=== PATIENT | female | born 1945 | race African-American/Black ===

== ENCOUNTER 2024-03-13 23:08 | Emergency (ER) | payer MEDICARE, MEDICAID ==
[~2024-03-13] VITALS: Ht 165.1 cm; Wt 64.0 kg
[2024-03-13 23:10] VITALS: O2SAT 99
[2024-03-13] MEDS: SODIUM CHLORIDE 0.9% 1,000 ML IV ONE (23:30)
[2024-03-14 00:06] LABS: BASOPHILS % 0.3 % (0.0-2.0); EOSINOPHILS % 0.2 % (0.0-5.0); HEMATOCRIT. 37.7 % (36.0-48.0); HEMOGLOBIN. 12.4 g/dL (12.0-16.0); LYMPHOCYTES % 10.7 % (20.0-50.0); MEAN CORPUSCULAR HEMOGLOBIN 30.7 pg (28.0-32.0); MEAN CORPUSCULAR HGB CONC 32.7 g/dL (31.0-37.0); MEAN CORPUSCULAR VOLUME 93.9 fL (81.0-99.0); NEUTROPHILS % 84.8 % (40.0-76.0); PLATELET 254 x1000/uL (130-400); RED BLOOD CELL COUNT 4.02 mill/uL (4.2-5.4); RED CELL DISTRIBUTION WIDTH 12.8 % (11.6-14.6); WHITE BLOOD COUNT 4.6 x1000/uL (4.5-11.0)
[2024-03-14 00:18] LABS: CHLORIDE 96 mEq/L (98-107); SODIUM 140 mEq/L (136-145)
[2024-03-14 00:19] LABS: CARBON DIOXIDE 36 mEq/L (21-32)
[2024-03-14 00:20] LABS: CALCIUM 11.6 mg/dL (8.7-10.4)
[2024-03-14 00:24] LABS: GLUCOSE 159 mg/dL (70-105); UREA NITROGEN BLOOD 31 mg/dL (9-23)
[2024-03-14 00:25] LABS: PROTHROMBIN TIME 11.2 sec (9.6-11.0)
[2024-03-14 00:26] LABS: ALANINE AMINOTRANSFERASE 9 IU/L (10-49); ALBUMIN 4.9 g/dL (3.2-4.8); ASPARTATE AMINOTRANSFERASE 25 IU/L (<34)
[2024-03-14 00:27] LABS: BILIRUBIN DIRECT 0.3 mg/dL (<=3.0); BILIRUBIN TOTAL 0.8 mg/dL (0.1-1.0); PROTEIN TOTAL 7.8 g/dL (6.0-8.3)
[2024-03-14] MEDS: MORPHINE SULFATE 4 MG/ML INJ (FOR IV/IM USE) IV STA (00:32)
[2024-03-14] MEDS: ONDANSETRON HCL 4MG/2ML INJ IV STA (00:33)
[2024-03-14 01:07] LABS: POTASSIUM 2.8 mEq/L (3.5-5.1); TROPONIN I HIGH SENSITIVITY 85 ng/L (3.0-34)
[2024-03-14] MEDS: KCL 20MEQ/100ML PREMIX 100 ML IV SCH (02:38)
[2024-03-14] MEDS: PIPERACILLIN/TAZO 3.375G/50ML 50 ML IV ONE (02:38)
[2024-03-14 03:52] LABS: TROPONIN I HIGH SENSITIVITY 76 ng/L (3.0-34)
[2024-03-14 04:22] VITALS: BP 120/93; PULSE 97; RESP 18; TEMP 36.89184; O2SAT 99
[2024-03-14 05:15] LABS: CREATININE 2.1 mg/dL (0.6-1.0)
== END 2024-03-14 06:03 | disposition home or self-care (01) ==
LOC: ER 23:08
DX: K56.609 Unspecified intestinal obstruction, unspecified as to partial versus complete obstruction (principal); I10 Essential (primary) hypertension
CPT/HCPCS: 99285; 96361; 71045; 80076; 80048; 83880; 83690; 85025; 85610; 84484 ×2; 36415 ×2; 93005; 74176; 96365; 96375; 96367; 83605; 87040; J7030; J2405; J2543; J3480; J2270

== ENCOUNTER 2025-04-14 12:19 | Emergency (ER) | payer MEDICARE, MEDICAID ==
[~2025-04-14] VITALS: Ht 154.9 cm; Wt 55.0 kg
[2025-04-14 12:20] VITALS: O2SAT 99
[2025-04-14 13:12] VITALS: TEMP 37
[2025-04-14] MEDS: ONDANSETRON HCL 4MG/2ML INJ IV ONE (13:12)
[2025-04-14] MEDS: MORPHINE SULFATE 4 MG/ML INJ (FOR IV/IM USE) IV ONE (13:12)
[2025-04-14 13:27] LABS: HEMATOCRIT. 36.3 % (36.0-48.0); HEMOGLOBIN. 12.1 g/dL (12.0-16.0); MEAN PLATELET VOLUME 8.2 fl (7.4-10.4); PLATELET 227 x1000/uL (130-400); RED BLOOD CELL COUNT 3.90 mill/uL (4.2-5.4); RED CELL DISTRIBUTION WIDTH 12.2 % (11.6-14.6)
[2025-04-14 13:42] LABS: INR 1.1
[2025-04-14 13:55] LABS: UREA NITROGEN BLOOD 20 mg/dL (9-23)
[2025-04-14 13:57] LABS: ASPARTATE AMINOTRANSFERASE 42 IU/L (<34); BILIRUBIN DIRECT 0.3 mg/dL (<=3.0); BILIRUBIN TOTAL 0.8 mg/dL (0.1-1.0); PROTEIN TOTAL 7.7 g/dL (6.0-8.3)
[2025-04-14 13:58] LABS: CREATININE 1.3 mg/dL (0.6-1.0); TROPONIN I HIGH SENSITIVITY 128 ng/L (3.0-34)
[2025-04-14 14:24] LABS: BAND% 1.0 % (1.0-6.0); LYMPHOCYTES % MANUAL 4.0 % (20.0-60.0); MONOCYTES % MANUAL 2.0 % (2.0-8.0); NEUTROPHILS % MANUAL 93.0 % (45.0-75.0); PLATELET ESTIMATE NORMAL
[2025-04-14] MEDS: CLOPIDOGREL 75MG TABLET PO ONE (14:27)
[2025-04-14] MEDS: ASPIRIN 325MG EC TABLET PO ONE (14:27)
[2025-04-14] MEDS ORDERED: ONDANSETRON HCL 4MG/2ML INJ IV PRN (15:30)
[2025-04-14] MEDS ORDERED: HYDROCODONE/ACETAMINOPHEN 5/325MG TABLET PO PRN (15:30)
[2025-04-14] MEDS ORDERED: IPRATROPIUM/ALBUTEROL 0.5-3(2.5)MG/3ML NEB HHN PRN (15:30)
[2025-04-14] MEDS ORDERED: NALOXONE HCL 0.4MG/ML VIAL IV PRN (15:45)
[2025-04-14 16:33] VITALS: BP 145/72; PULSE 86; RESP 16; O2SAT 98
[2025-04-14] MEDS ORDERED: ENOXAPARIN 40MG/0.4ML SYR SUBCUT SCH (18:00)
[2025-04-14] MEDS ORDERED: ATORVASTATIN CALCIUM 40MG TABLET PO SCH (21:00)
[2025-04-14] MEDS ORDERED: METOPROLOL TARTRATE 25MG TABLET PO SCH (21:00)
[2025-04-14] MEDS ORDERED: ENOXAPARIN 60MG/0.6ML SYR SUBCUT SCH (21:00)
[2025-04-15] MEDS ORDERED: ASPIRIN 81MG EC TABLET PO SCH (09:00)
== END 2025-04-14 16:54 | disposition left against medical advice (07) ==
LOC: ER 12:19 → EDBEDREQTM 15:18 → EDBEDREQ 15:18 → ENRESERV 16:22 → CANRESERV 16:22 → CANBEDREQ 16:26 → ER 16:54
DX: I21.4 Non-ST elevation (NSTEMI) myocardial infarction (principal); F03.90 Unspecified dementia, unspecified severity, without behavioral disturbance, psychotic disturbance, mood disturbance, and anxiety; I10 Essential (primary) hypertension; I25.10 Atherosclerotic heart disease of native coronary artery without angina pectoris; Z79.82 Long term (current) use of aspirin; Z79.899 Other long term (current) drug therapy
CPT/HCPCS: 99291; 74176; 96374; 96375; 80076; 80048; 83880; 83690; 83735; 85025; 85610; 85730; 86850; 86900; 86901; 84484; 36415; J2405; J2270